=== PATIENT | female | born 1950 | race Caucasian/White ===

== ENCOUNTER 2020-09-03 10:09 | Outpatient (CLI) | payer MEDICARE, OTHER, SELFPAY ==
[2020-09-03 10:24] LABS: Basophils Percent Auto 0.5 % (0.2-1.2); Eosinophils Absolute Auto 0.2 K/mm3 (0-0.3); Eosinophils Percent Auto 3.8 % (0-4.4); Hematocrit 35.5 % (37.0-47.0); Hemoglobin 11.2 g/dL (12.0-15.0); Immature Granulocyte Absolute 0.02 K/mm3 (0.00-0.031); Immature Granulocyte Percent A 0.3 % (0-0.5); Lymphocytes Absolute Auto 1.16 K/mm3 (0.9-3.2); Lymphocytes Percent Auto 18.4 % (18.3-44.2); Mean Corpuscular HGB Conc 31.5 g/dl (32-36); Mean Corpuscular Volume 88.8 fl (80-100); Mean Platelet Volume 9.1 fl (7.4-10.4); Monocytes Absolute Auto 0.6 K/mm3 (0.1-0.6); Monocytes Percent Auto 8.9 % (2.6-8.5); Neutrophils Absolute Auto 4.3 K/mm3 (1.3-6.7); Neutrophils Percent Auto 68.1 % (45.5-73.1); Platelet Count Result 290 k/mm3 (150-375); Red Cell Distribution Width 13.9 % (11.5-14.5); White Blood Count 6.3 K/mm3 (4.5-10.0)
[2020-09-03 12:41] LABS: Vitamin D 25 Hydroxy 51.3 ng/mL
[2020-09-03 13:36] LABS: Alanine Aminotransferase 18 U/L (4-35); Albumin Level 4.5 g/dL (3.5-5.1); Alkaline Phosphatase 60 U/L (38-126); Anion Gap 6 mmol/L (8-16); Aspartate Amino Transferase 28 U/L (14-36); Bilirubin,Total 0.3 mg/dL (0.2-1.3); Blood Urea Nitrogen 22 mg/dL (7-17); Calcium 9.5 mg/dL (8.4-10.2); Carbon Dioxide 28 mmol/L (22-30); Chloride 104 mmol/L (98-107); Cholesterol 203 mg/dL (0-200); Estimated Glomerular Filt Rate > 60; Glucose 87 mg/dL (65-105); HDL Direct 78 mg/dL; Potassium 4.8 mmol/L (3.4-5.0); Sodium 138 mmol/L (137-145); Triglycerides 86 mg/dL (<150)
[2020-09-03 13:46] LABS: LDL Cholesterol Direct 85 mg/dL
== END 2020-09-03 10:10 | disposition home or self-care (01) ==
PROVIDERS: PCP Family Medicine; Visit Provider Family Medicine
DX: E78.2 Mixed hyperlipidemia (principal); K21.9 Gastro-esophageal reflux disease without esophagitis; M81.0 Age-related osteoporosis without current pathological fracture; D63.8 Anemia in other chronic diseases classified elsewhere; Z79.899 Other long term (current) drug therapy
CPT/HCPCS: 36415; 80053; 80061; 82306; 82607; 84443; 85025

== ENCOUNTER 2020-11-02 12:56 | Outpatient (CLI) | payer MEDICARE, OTHER, SELFPAY ==
--- NOTE | ~2020-11-02 | DEXA_ITS ---
Bone Density Report Name: Ngozi Gomez Age: 70 Sex: Female Ethnicity: White Date of : 1950 Indication: osteopenia; monitoring treatment; height loss; postmenopausal Referring Provider: Adria Pastor Study: Bone densitometry was performed. Exam Date: November 02, 2020 Accession number: [id number] Bone Density: Region BMD T-score Z-score Classification AP Spine (L1-L4) 0.907 -1.3 0.8 Osteopenia Femoral Neck (Left) 0.566 -2.6 -0.8 Osteoporosis Total Hip (Left) 0.793 -1.2 0.3 Osteopenia Total Hip Bilateral Avg 0.791 -1.3 0.3 Osteopenia Femoral Neck (Right) 0.657 -1.7 0.1 Osteopenia Total Hip (Right) 0.788 -1.3 0.2 Osteopenia World Health Organization criteria for BMD impression classify patients as: Normal (T-score at or above -1.0), Osteopenia (T-score between -1.0 and -2.5), or Osteoporosis (T-score at or below -2.5). 10-year Fracture Risk: FRAX not reported because: Some T-score for Spine Total or Hip Total or Femoral Neck at or below -2.5 Treated for osteoporosis Previous Exams: Region Exam Age BMD T-score BMD Change BMD Change Date g/cm2 vs Baseline vs Previous AP Spine(L1-L4) 11/02/2020 70 0.907 -1.3 0.064(7.5%)# 0.052(6.1%)* 12/28/2017 67 0.855 -1.7 0.012(1.4%)# 0.053(6.6%)* 11/10/2014 64 0.802 -2.2 -0.041(-4.9%)# -0.013(-1.6%)# 10/13/2011 61 0.815 -2.1 -0.028(-3.3%)# 0.007(0.9%)# 10/01/2009 59 0.808 -2.2 -0.035(-4.1%)* -0.009(-1.1%) 09/21/2007 56 0.817 -2.1 -0.026(-3.1%)* -0.026(-3.1%)* 08/22/2005 54 0.843 -1.9 Total Hip(Left) 11/02/2020 70 0.793 -1.2 0.066(9.1%)# 0.000(-0.1%) 12/28/2017 67 0.794 -1.2 0.067(9.2%)# -0.015(-1.8%) 11/10/2014 64 0.808 -1.1 0.081(11.2%)# 0.036(4.6%)# 10/13/2011 61 0.772 -1.4 0.046(6.3%)# 0.026(3.5%)# 10/01/2009 59 0.746 -1.6 0.019(2.7%) -0.001(-0.2%) 09/21/2007 56 0.748 -1.6 0.021(2.8%) 0.021(2.8%) 08/22/2005 54 0.727 -1.8 Total Hip(Right) 11/02/2020 70 0.788 -1.3 0.028(3.7%)# -0.012(-1.4%) 12/28/2017 67 0.799 -1.2 0.040(5.3%)# 0.003(0.3%) 11/10/2014 64 0.796 -1.2 0.037(4.9%)# 0.021(2.7%)# 10/13/2011 61 0.775 -1.4 0.016(2.1%)# 0.018(2.4%)# 10/01/2009 59 0.757 -1.5 -0.002(-0.3%) 0.022(3.0%) 09/21/2007 56 0.735 -1.7 -0.024(-3.2%) -0.024(-3.2%) 08/22/2005 54 0.759 -1.5 *Denotes significance at 95% confidence level, LSC for AP Spine = 0.022 g/cm2, LSC for Total Hip = 0.027 g/cm2 Clinical Information Provided by Patient:
== END 2020-11-02 12:57 | disposition home or self-care (01) ==
LOC: ANHIMG 12:59
PROVIDERS: PCP Family Medicine; Visit Provider Internal Medicine Hematology & Oncology
DX: M81.0 Age-related osteoporosis without current pathological fracture (principal); M85.89 Other specified disorders of bone density and structure, multiple sites
CPT/HCPCS: 77080

== ENCOUNTER 2021-09-16 10:02 | Outpatient (CLI) | payer MEDICARE, OTHER, SELFPAY ==
[2021-09-16 10:31] LABS: Basophils Percent Auto 0.5 % (0.2-1.2); Eosinophils Absolute Auto 0.1 K/mm3 (0-0.3); Eosinophils Percent Auto 2.3 % (0-4.4); Hematocrit 37.6 % (37.0-47.0); Hemoglobin 11.3 g/dL (12.0-15.0); Immature Granulocyte Absolute 0.03 K/mm3 (0.00-0.031); Immature Granulocyte Percent A 0.5 % (0-0.5); Lymphocytes Absolute Auto 1.05 K/mm3 (0.9-3.2); Lymphocytes Percent Auto 18.4 % (18.3-44.2); Mean Corpuscular HGB Conc 30.1 g/dl (32-36); Mean Corpuscular Hemoglobin 28.3 pg (26-34); Mean Corpuscular Volume 94.2 fl (80-100); Mean Platelet Volume 9.2 fl (7.4-10.4); Monocytes Absolute Auto 0.4 K/mm3 (0.1-0.6); Monocytes Percent Auto 7.2 % (2.6-8.5); Neutrophils Absolute Auto 4.1 K/mm3 (1.3-6.7); Neutrophils Percent Auto 71.1 % (45.5-73.1); Platelet Count Result 287 k/mm3 (150-375); Red Blood Count 3.99 M/mm3 (4.2-5.4); Red Cell Distribution Width 13.7 % (11.5-14.5); White Blood Count 5.7 K/mm3 (4.5-10.0)
[2021-09-16 11:07] LABS: Cholesterol 216 mg/dL (0-200); HDL Direct 70 mg/dL; Iron 67 ug/dL (37-170); Triglycerides 90 mg/dL (<150)
[2021-09-16 11:11] LABS: Alanine Aminotransferase 17 U/L (4-35); Albumin Level 4.6 g/dL (3.5-5.1); Alkaline Phosphatase 68 U/L (38-126); Anion Gap 7 mmol/L (8-16); Aspartate Amino Transferase 32 U/L (14-36); Bilirubin,Total 0.2 mg/dL (0.2-1.3); Blood Urea Nitrogen 23 mg/dL (7-17); Carbon Dioxide 26 mmol/L (22-30); Chloride 105 mmol/L (98-107); Estimated Glomerular Filt Rate > 60; Glucose 96 mg/dL (65-110); Potassium 4.3 mmol/L (3.4-5.0); Sodium 138 mmol/L (137-145)
[2021-09-16 11:17] LABS: Percent Iron Saturation 22 % (20-50)
[2021-09-16 11:19] LABS: LDL Cholesterol Direct 87 mg/dL
[2021-09-16 11:33] LABS: Vitamin D 25 Hydroxy 52.6 ng/mL
== END 2021-09-16 10:03 | disposition home or self-care (01) ==
LOC: ANHLAB 10:05
PROVIDERS: PCP Family Medicine; Visit Provider Internal Medicine Hematology & Oncology
DX: K21.9 Gastro-esophageal reflux disease without esophagitis (principal); D63.8 Anemia in other chronic diseases classified elsewhere; Z79.899 Other long term (current) drug therapy; M81.0 Age-related osteoporosis without current pathological fracture
CPT/HCPCS: 36415; 80053; 80061; 82306; 82607; 82728; 83540; 83550; 85025

== ENCOUNTER 2021-12-16 00:11 | Day surgery (SDC) | payer MEDICARE, OTHER, SELFPAY ==
[2021-11-29 13:36] VITALS: BMI 27.5
--- NOTE | 2021-12-16 09:19 | WPDANESEPPF ---
Anes - Initial Pre Proc Eval Procedure: Operation Date: 12/16/21 11:00 Proposed Procedures p Screening Colonoscopy - Kyle Callahan MD Date/Time: 12/16/21 09:19 Surgeon: Kyle Callahan MD Pre Op Diagnosis: family hx of colon ca Patient Data Age: 71 Gender: F Height: 1.55 m Weight: 66 kg Allergies Allergy/AdvReac Type Severity Reaction Status Date / Time iodine Allergy Unknown Anxiety Verified 12/16/21 09:56 ospemifene [Osphena] Allergy Unknown itching, Verified 12/16/21 09:56 hot flashes shellfish derived Allergy Unknown Anxiety Verified 12/16/21 09:56 Home Medications Medication Instructions Recorded Confirmed Type acetaminophen 650 mg 650 mg PO PRN PRN Pain 03/15/19 11/29/21 History tablet,extended release ascorbic acid (vitamin C) 500 mg 1,000 mg PO DAILY 03/15/19 11/29/21 History tablet calcium carb 300 mg-D3 800 1 tablet PO DAILY 03/15/19 11/29/21 History unit-mag ox 25 mg-marketing copywriter 0.5 mg-ck-Zn tablet cholecalciferol (vitamin D3) 25 1,000 unit PO DAILY 03/15/19 11/29/21 History mcg (1,000 unit) capsule denosumab 60 mg/mL subcutaneous 60 mg subcut [id number] 03/15/19 11/29/21 History syringe fluticasone propionate 50 1 spray intranasal DAILY PRN Nasal 03/15/19 11/29/21 History mcg/actuation nasal Congestion spray,suspension multivitamin 1 tablet PO DAILY 03/15/19 11/29/21 History tretinoin 0.05 % topical gel 1 applic topical HS #45 grams 01/20/20 11/29/21 Rx atorvastatin 10 mg tablet 10 mg PO DAILY #90 tabs 02/04/21 11/29/21 Rx omeprazole 20 mg capsule,delayed 20 mg PO DAILY #30 caps 02/15/21 11/29/21 Rx release meloxicam 15 mg tablet See Rx Instructions .Route 09/06/21 11/29/21 Rx .COMPLEX #90 tabs Patient hx anesthesia problems: none Family hx anesthesia problems: none Results Review: All pre-operative results and documents have been reviewed as part of the pre-operative evaluation. [facility] Past Medical History Medical History (Updated 12/16/21 @ 09:20 by Huber Acosta MD) Age-related osteoporosis without current pathological fracture Basal cell carcinoma upper back Gastro-esophageal reflux disease without esophagitis Mixed hyperlipidemia Overweight Sciatica Surgical History Surgical History (Updated 02/15/21 @ 11:32 by Dina Augustin [facility]) H/O shoulder replacement (~2020) H/O total hysterectomy Family History Family History Sibling Hypertension Father Family history of pancreatic cancer, Onset Age: 49 Mother Family history of malignant neoplasm of uterus, Onset Age: 49 Grandparent Family history of malignant neoplasm of breast Other Diabetes mellitus Family history of allergic disorder Family history of cardiovascular disease Social History Social History (Reviewed 02/15/21 @ 10:55 by Dina Augustin [facility]) Smoking status: Never smoker Smoking end date: 05/25/77 Alcohol intake: never Substance use type: does not use Living arrangements: with family Spiritual care concerns: No Anes - Eval Final PreProcedure Day of Procedure 12/16/21 09:19 Patient weight: overweight Heart: regular rate and rhythm Lungs: clear to auscultation and normal air movement Airway: Mallampati scale class II Neurological: alert and oriented Last oral intake: >/= 8 hours ASA classification: II Emergent: no Anesthetic plan: proceed Anesthesia type and monitoring: general GIVS Results Review: All pre-operative results and documents have been reviewed as part of the pre-operative evaluation. Informed Consent: The patient's anesthetic plan and its attendant risks and benefits were discussed with the patient/family/POA. Questions were solicited and answers provided to the satisfaction of the patient/family/POA.
[2021-12-16 09:57] VITALS: BP 131/71; PULSE 69; RESP 22; TEMP 36.1; O2SAT 99
[2021-12-16] MEDS: LACTATED RINGERS 1,000 ML 150 ML IV CONT (10:15)
--- NOTE | 2021-12-16 10:27 | PM.IMHP ---
H&P: HPI History of Present Illness Date/Time: 12/16/21 10:27 Chief Complaint: History of colon polyp. Narrative: This is a 71-year-old white female patient presents for screening colonoscopy. She has a distant history of hyperplastic colon polyp. Patient reports her current weight appetite bowel movements are normal. She denies abdominal pain. She has had no bleeding. Family history is significant that her sister had throat cancer. There is no reported history of colon cancer within the. Patient presents today for neoplasia screening endoscopy. Review of Systems Review of Systems: Review of systems noncontributory. [facility] Past Medical History Medical History (Updated 12/16/21 @ 10:28 by Kyle Callahan MD) Age-related osteoporosis without current pathological fracture Basal cell carcinoma upper back Gastro-esophageal reflux disease without esophagitis Mixed hyperlipidemia Overweight Sciatica Surgical History Surgical History (Updated 02/15/21 @ 11:32 by Dina Augustin C[facility]) H/O shoulder replacement (~2020) H/O total hysterectomy Family History Family History Sibling Hypertension Father Family history of pancreatic cancer, Onset Age: 49 Mother Family history of malignant neoplasm of uterus, Onset Age: 49 Grandparent Family history of malignant neoplasm of breast Other Diabetes mellitus Family history of allergic disorder Family history of cardiovascular disease Social History Social History Smoking status: Never smoker Smoking end date: 05/25/77 Alcohol intake: never Substance use type: does not use Living arrangements: with family Spiritual care concerns: No Meds Home Medications and Allergies Home Medications Medication Instructions Recorded Confirmed Type acetaminophen 650 mg 650 mg PO PRN PRN Pain 03/15/19 11/29/21 History tablet,extended release ascorbic acid (vitamin C) 500 mg 1,000 mg PO DAILY 03/15/19 11/29/21 History tablet calcium carb 300 mg-D3 800 1 tablet PO DAILY 03/15/19 11/29/21 History unit-mag ox 25 mg-copy editor 0.5 mg-ck-Zn tablet cholecalciferol (vitamin D3) 25 1,000 unit PO DAILY 03/15/19 11/29/21 History mcg (1,000 unit) capsule denosumab 60 mg/mL subcutaneous 60 mg subcut [id number] 03/15/19 11/29/21 History syringe fluticasone propionate 50 1 spray intranasal DAILY PRN Nasal 03/15/19 11/29/21 History mcg/actuation nasal Congestion spray,suspension multivitamin 1 tablet PO DAILY 03/15/19 11/29/21 History tretinoin 0.05 % topical gel 1 applic topical HS #45 grams 01/20/20 11/29/21 Rx atorvastatin 10 mg tablet 10 mg PO DAILY #90 tabs 02/04/21 11/29/21 Rx omeprazole 20 mg capsule,delayed 20 mg PO DAILY #30 caps 02/15/21 11/29/21 Rx release meloxicam 15 mg tablet See Rx Instructions .Route 09/06/21 11/29/21 Rx .COMPLEX #90 tabs Allergies Allergy/AdvReac Type Severity Reaction Status Date / Time iodine Allergy Unknown Anxiety Verified 12/16/21 09:56 ospemifene [Osphena] Allergy Unknown itching, Verified 12/16/21 09:56 hot flashes shellfish derived Allergy Unknown Anxiety Verified 12/16/21 09:56 Vital Signs Vital Signs - 24 hr 12/16/21 09:57 Temperature 97.0 F L Pulse Rate 69 Respiratory Rate 22 H Blood Pressure 131/71 Pulse Oximetry 99 Oxygen Delivery Room Air Exam Narrative: Physical exam reveals patient to be alert. Vital signs stable. HEENT exam is unremarkable. Patient is anicteric. Lungs are clear to auscultation and percussion. Heart is without murmur or extra sounds. Abdominal exam bowel sounds present soft nontender with no organomegaly. Digital external rectal exam is normal. Assessment and Plan Assessment and plan (1) Encounter for screening colonoscopy: Code(s): Z12.11 - Encounter for screening for malignant neoplasm of colon
[2021-12-16 11:01] VITALS: BP 96/51; PULSE 83; RESP 22; O2SAT 100
[2021-12-16 11:11] VITALS: BP 102/55; PULSE 84; RESP 26; O2SAT 100
[2021-12-16 11:21] VITALS: BP 125/69; PULSE 74; RESP 21; O2SAT 100
== END 2021-12-16 11:39 | disposition home or self-care (01) ==
PROVIDERS: PCP Family Medicine; Visit Provider Internal Medicine Gastroenterology
PROC: 0DJD8ZZ Inspection of Lower Intestinal Tract, Via Natural or Artificial Opening Endoscopic (ICD-10-PCS; CPT 45378; principal; 2021-12-16 11:00)
DX: Z12.11 Encounter for screening for malignant neoplasm of colon (principal); Z80.0 Family history of malignant neoplasm of digestive organs; K64.8 Other hemorrhoids; K57.30 Diverticulosis of large intestine without perforation or abscess without bleeding; M54.30 Sciatica, unspecified side; K21.9 Gastro-esophageal reflux disease without esophagitis; E78.2 Mixed hyperlipidemia; Z85.828 Personal history of other malignant neoplasm of skin
CPT/HCPCS: G0105; J2704; J7120

== ENCOUNTER 2022-11-03 11:51 | Outpatient (CLI) | payer MEDICARE, OTHER, SELFPAY ==
[2022-11-03 16:43] LABS: Cholesterol 226 mg/dL (0-200); HDL Direct 79 mg/dL; Triglycerides 100 mg/dL (<150)
[2022-11-03 16:54] LABS: LDL Cholesterol Direct 103 mg/dL
[2022-11-03 17:00] LABS: Vitamin D 25 Hydroxy 39.9 ng/mL
== END 2022-11-03 11:52 | disposition home or self-care (01) ==
LOC: ANHLAB 11:55
PROVIDERS: PCP Family Medicine; Visit Provider Internal Medicine Hematology & Oncology
DX: E78.2 Mixed hyperlipidemia (principal); Z79.899 Other long term (current) drug therapy; D64.9 Anemia, unspecified; M81.0 Age-related osteoporosis without current pathological fracture
CPT/HCPCS: 36415; 80061; 82306; 82607

== ENCOUNTER 2022-12-10 13:02 | Outpatient (CLI) | payer MEDICARE, OTHER, SELFPAY | END 2022-12-10 13:03 | disposition home or self-care (01) | LOC: ANHAUDASC 13:05 | PROVIDERS: PCP Family Medicine; Visit Provider Otolaryngology | DX: H91.90 Unspecified hearing loss, unspecified ear (principal) | CPT/HCPCS: 92557; 92567 ==

== ENCOUNTER 2023-05-05 10:30 | Outpatient (CLI) | payer MEDICARE, OTHER, SELFPAY ==
[2023-05-05 10:47] LABS: Basophils Percent Auto 0.5 % (0.2-1.2); Eosinophils Absolute Auto 0.1 K/mm3 (0-0.3); Hematocrit 37.6 % (37.0-47.0); Hemoglobin 12.1 g/dL (12.0-15.0); Immature Granulocyte Absolute 0.02 K/mm3 (0.00-0.031); Immature Granulocyte Percent A 0.3 % (0-0.5); Lymphocytes Absolute Auto 0.98 K/mm3 (0.9-3.2); Lymphocytes Percent Auto 16.1 % (18.3-44.2); Mean Corpuscular HGB Conc 32.2 g/dl (32-36); Mean Corpuscular Hemoglobin 27.9 pg (26-34); Mean Corpuscular Volume 86.6 fl (80-100); Mean Platelet Volume 8.6 fl (7.4-10.4); Monocytes Absolute Auto 0.5 K/mm3 (0.1-0.6); Monocytes Percent Auto 8.4 % (2.6-8.5); Neutrophils Absolute Auto 4.4 K/mm3 (1.3-6.7); Neutrophils Percent Auto 72.7 % (45.5-73.1); Platelet Count Result 301 k/mm3 (150-375); Red Blood Count 4.34 M/mm3 (4.2-5.4); Red Cell Distribution Width 14.5 % (11.5-14.5); White Blood Count 6.1 K/mm3 (4.5-10.0)
[2023-05-05 12:02] LABS: Alanine Aminotransferase 19 U/L (6-35); Albumin Level 4.4 g/dL (3.5-5.1); Alkaline Phosphatase 76 U/L (38-126); Anion Gap 6 mmol/L (8-16); Aspartate Amino Transferase 26 U/L (14-36); Bilirubin,Total 0.4 mg/dL (0.2-1.3); Blood Urea Nitrogen 10 mg/dL (7-17); Carbon Dioxide 29 mmol/L (22-30); Chloride 101 mmol/L (98-107); Estimated Glomerular Filt Rate > 60; Glucose 96 mg/dL (65-110); Potassium 4.4 mmol/L (3.4-5.0); Sodium 136 mmol/L (137-145)
== END 2023-05-05 10:31 | disposition home or self-care (01) ==
LOC: ANHLAB 10:33
PROVIDERS: PCP Family Medicine; Visit Provider Internal Medicine Hematology & Oncology
DX: D64.9 Anemia, unspecified (principal); M81.0 Age-related osteoporosis without current pathological fracture; Z79.899 Other long term (current) drug therapy
CPT/HCPCS: 36415; 80053; 82728; 85025

== ENCOUNTER → 2023-05-11 09:09 | Outpatient (CLI) | payer MEDICARE, OTHER, SELFPAY ==
--- NOTE | ~2023-05-11 | CT_ITS ---
EXAMINATION: CT sinus wo con DATE: 05/11/2023 09:26 INDICATION: Chronic sinusitis TECHNIQUE: Computed tomography (CT) of the paranasal sinuses was performed without intravenous contra st. The dose-length product (DLP) was 397.93 mGy-cm. Iterative reconstruction was used. COMPARISON: 09/01/2012 FINDINGS: There is normal development and pneumatization of the paranasal sinuses. There is minimal o pacification of the right frontal sinus. Mild mucosal thickening is noted in the left sphenoid sinus. There appear to be surgical changes of the right maxillary sinus. A small area of focal thickening i s noted superomedially in the right maxillary sinus. The bilateral ostiomeatal complexes are patent. Visualized soft tissues are unremarkable. There are small fluid levels in the maxillary sinuses. IMPRESSION: 1. Mild sinus disease as detailed above. Reviewed, dictated and finalized at location B. [employer]
== END ==
PROVIDERS: PCP Family Medicine; Visit Provider Otolaryngology
DX: B49 Unspecified mycosis (principal)
CPT/HCPCS: 70486

== ENCOUNTER 2023-09-24 10:26 | Outpatient (CLI) | payer MEDICARE, OTHER, SELFPAY ==
[2023-09-24 19:05] LABS: Basophils Percent Auto 0.1 % (0.2-1.2); Eosinophils Percent Auto 0.3 % (0-4.4); Hematocrit 37.8 % (37.0-47.0); Hemoglobin 11.8 g/dL (12.0-15.0); Immature Granulocyte Absolute 0.12 K/mm3 (0.00-0.031); Immature Granulocyte Percent A 1.3 % (0-0.5); Lymphocytes Absolute Auto 1.59 K/mm3 (0.9-3.2); Lymphocytes Percent Auto 16.6 % (18.3-44.2); Mean Corpuscular HGB Conc 31.2 g/dl (32-36); Mean Corpuscular Volume 89.8 fl (80-100); Mean Platelet Volume 9.9 fl (7.4-10.4); Neutrophils Absolute Auto 6.9 K/mm3 (1.3-6.7); Neutrophils Percent Auto 71.7 % (45.5-73.1); Platelet Count Result 315 k/mm3 (150-375); Red Blood Count 4.21 M/mm3 (4.2-5.4); Red Cell Distribution Width 14.1 % (11.5-14.5); White Blood Count 9.6 K/mm3 (4.5-10.0)
[2023-09-24 19:13] LABS: Alanine Aminotransferase 20 U/L (6-35); Albumin Level 4.4 g/dL (3.5-5.1); Alkaline Phosphatase 75 U/L (38-126); Anion Gap 5 mmol/L (4-12); Aspartate Amino Transferase 29 U/L (14-36); Bilirubin,Total 0.5 mg/dL (0.2-1.3); Blood Urea Nitrogen 16 mg/dL (7-17); Calcium 9.5 mg/dL (8.4-10.2); Carbon Dioxide 30 mmol/L (22-30); Chloride 103 mmol/L (98-107); Cholesterol 212 mg/dL (0-200); Estimated Glomerular Filt Rate > 60; Glucose 81 mg/dL (65-110); HDL Direct 81 mg/dL; Potassium 3.7 mmol/L (3.4-5.0); Sodium 138 mmol/L (137-145); Triglycerides 82 mg/dL (<150)
[2023-09-24 19:24] LABS: LDL Cholesterol Direct 103 mg/dL
== END 2023-09-24 10:27 | disposition home or self-care (01) ==
PROVIDERS: PCP Family Medicine; Visit Provider Family Medicine
DX: E78.2 Mixed hyperlipidemia (principal); D64.9 Anemia, unspecified; Z79.899 Other long term (current) drug therapy
CPT/HCPCS: 36415; 80053; 80061; 85025

== ENCOUNTER 2023-11-05 10:39 | Outpatient (CLI) | payer MEDICARE, OTHER, SELFPAY ==
[2023-11-05 10:53] LABS: Basophils Percent Auto 0.4 % (0.2-1.2); Eosinophils Absolute Auto 0.1 K/mm3 (0-0.3); Eosinophils Percent Auto 1.8 % (0-4.4); Hematocrit 38.7 % (37.0-47.0); Hemoglobin 12.3 g/dL (12.0-15.0); Immature Granulocyte Absolute 0.03 K/mm3 (0.00-0.031); Immature Granulocyte Percent A 0.5 % (0-0.5); Lymphocytes Absolute Auto 1.19 K/mm3 (0.9-3.2); Lymphocytes Percent Auto 20.9 % (18.3-44.2); Mean Corpuscular HGB Conc 31.8 g/dl (32-36); Mean Corpuscular Hemoglobin 28.2 pg (26-34); Mean Corpuscular Volume 88.8 fl (80-100); Mean Platelet Volume 8.8 fl (7.4-10.4); Monocytes Absolute Auto 0.5 K/mm3 (0.1-0.6); Monocytes Percent Auto 9.5 % (2.6-8.5); Neutrophils Absolute Auto 3.8 K/mm3 (1.3-6.7); Neutrophils Percent Auto 66.9 % (45.5-73.1); Platelet Count Result 279 k/mm3 (150-375); Red Blood Count 4.36 M/mm3 (4.2-5.4); Red Cell Distribution Width 13.9 % (11.5-14.5); White Blood Count 5.7 K/mm3 (4.5-10.0)
[2023-11-05 12:21] LABS: Iron 82 ug/dL (37-170)
[2023-11-05 12:24] LABS: Anion Gap 8 mmol/L (4-12); Blood Urea Nitrogen 19 mg/dL (7-17); Calcium 9.5 mg/dL (8.4-10.2); Carbon Dioxide 27 mmol/L (22-30); Chloride 103 mmol/L (98-107); Cholesterol 216 mg/dL (0-200); Estimated Glomerular Filt Rate > 60; Glucose 93 mg/dL (65-110); Potassium 4.5 mmol/L (3.4-5.0); Sodium 138 mmol/L (137-145)
[2023-11-05 12:35] LABS: Percent Iron Saturation 29 % (20-50)
[2023-11-05 13:32] LABS: Folic Acid > 20.0 ng/mL (2.76->20)
== END 2023-11-05 10:40 | disposition home or self-care (01) ==
LOC: ANHLAB 10:41
PROVIDERS: Nurse Practitioner Family; PCP Family Medicine; Visit Provider Internal Medicine Hematology & Oncology
DX: E78.5 Hyperlipidemia, unspecified (principal); D64.9 Anemia, unspecified
CPT/HCPCS: 36415; 80048; 82465; 82607; 82728; 82746; 83540; 83550; 85025

== ENCOUNTER 2024-01-01 18:17 | Emergency (ER) | payer MEDICARE, OTHER, SELFPAY ==
[2024-01-01 18:25] VITALS: BP 152/79; PULSE 93; RESP 20; TEMP 36.9; O2SAT 100
--- NOTE | 2024-01-01 18:47 | ED.URI ---
HPI - URI/Sore Throat General Chief Complaint: Upper Respiratory Infection Stated Complaint: HEADACHE/BURNING SINUS PAIN/EAR FEELS FULL/DRAINAG Time Seen by Provider: 01/01/24 18:35 Source: patient, RN notes reviewed and old records reviewed Mode of arrival: ambulatory Limitations: no limitations History of Present Illness HPI Narrative: Patient presents today complaining of a 2 week history of nasal congestion, sinus pressure, postnasal drip. States she is also having some right ear pain and pressure, which seems to be chronic in nature. Patient has been followed by Dr. Riggins in the past and diagnosed with chronic sinusitis an tinnitus. She is currently taking Mucinex D, Flonase, Tylenol, and meloxicam. She has a follow-up appointment with [facility] in January for a full workup related to her sinuses and tinnitus. Related Data Home Medications Medication Instructions Recorded Confirmed acetaminophen 650 mg 650 mg PO PRN PRN Pain 03/15/19 01/01/24 tablet,extended release ascorbic acid (vitamin C) 500 mg 1,000 mg PO DAILY 03/15/19 01/01/24 tablet calcium carb 300 mg-D3 20 mcg-mag 1 tablet PO DAILY 03/15/19 01/01/24 ox 25 mg-manager copy 0.5 [id number] tablet cholecalciferol (vitamin D3) 25 1,000 unit PO DAILY 03/15/19 01/01/24 mcg (1,000 unit) capsule multivitamin 1 tablet PO DAILY 03/15/19 01/01/24 mecobalamin (vitamin B12) 500 mcg 500 mcg PO DAILY 11/18/22 01/01/24 chewable tablet ferrous sulfate 137 mg (45 mg 45 mg PO DAILY 07/15/23 01/01/24 iron) tablet,extended release Allergies Allergy/AdvReac Type Severity Reaction Status Date / Time mold Allergy Intermediate Difficulty Verified 09/22/23 10:34 Breathing iodine Allergy Unknown Anxiety Verified 09/22/23 10:34 ospemifene [Osphena] Allergy Unknown itching, Verified 09/22/23 10:34 hot flashes shellfish derived Allergy Unknown Anxiety Verified 09/22/23 10:34 venlafaxine [From Effexor] Allergy Unknown Verified 01/01/24 18:37 Review of Systems Review of Systems: CONSTITUTIONAL: Denies body aches, fever, chills, or sweats. EYES: Denies visual changes, redness, or discharge. ENT: Denies rhinorrhea. + congestion, sinus pressure, right ear pain and pressure, postnasal drip CARDIOVASCULAR: Denies chest pain, palpitations, or edema. RESPIRATORY: Denies cough or dyspnea. GASTROINTESTINAL: Denies abdominal pain, nausea, vomiting, or diarrhea. GENITOURINARY: Denies dysuria or hematuria. SKIN: Denies rash, itching, or wounds. MUSCULOSKELETAL: Denies back pain, joint pain, or myalgia. NEUROLOGIC: Denies headache, numbness, tingling, or weakness. PSYCH: Denies depression or anxiety. [facility] Past Medical History Medical History Age-related osteoporosis without current pathological fracture dexa: Femoral Neck (Left) -2.1 Osteopenia Basal cell carcinoma upper back Gastro-esophageal reflux disease without esophagitis Hearing loss Mixed hyperlipidemia Overweight Sciatica Surgical History Surgical History H/O shoulder replacement (~2020) Family History Family History Sibling Hypertension Father Family history of pancreatic cancer, Onset Age: 49 Mother Family history of malignant neoplasm of uterus, Onset Age: 49 Grandparent Family history of malignant neoplasm of breast Other Diabetes mellitus Family history of allergic disorder Family history of cardiovascular disease Social History Social History Social History: Caffeine-decaf tea Smoking status: Never smoker Smoking end date: 05/25/77 Alcohol intake: current Alcohol use details: wine rarely Substance use: never Substance use type: does not use Lack of Transportation: YES Lack of Food: Never Tr
== END 2024-01-01 18:50 | disposition home or self-care (01) ==
PROVIDERS: Emergency Provider Nurse Practitioner; PCP Family Medicine
DX: J32.9 Chronic sinusitis, unspecified (principal); M81.0 Age-related osteoporosis without current pathological fracture; K21.9 Gastro-esophageal reflux disease without esophagitis; E78.2 Mixed hyperlipidemia; Z85.828 Personal history of other malignant neoplasm of skin
CPT/HCPCS: 99213; G0463

== ENCOUNTER 2024-05-20 10:39 | Outpatient (CLI) | payer MEDICARE, OTHER, SELFPAY ==
--- NOTE | ~2024-05-20 | MR_ITS ---
EXAMINATION: MR shoulder RT wo con DATE: 05/20/2024 11:44 INDICATION: Right shoulder pain TECHNIQUE: Magnetic resonance imaging (MRI) of the right shoulder was performed without intravenous c ontrast. Sequences included axial PD-weighted FSE, axial T1-weighted FSE, axial fluid sensitive FSE S TIR, coronal oblique PD-weighted FSE, coronal oblique T2-weighted FSE, coronal oblique fluid sensitiv e FSE STIR, sagittal T2-weighted FSE, sagittal T1-weighted, sagittal fluid sensitive FSE STIR. COMPARISON: None. FINDINGS: Bones/other: Interval placement of a right total shoulder arthroplasty with associated metallic magnetic field art ifact which obscures the immediately adjacent bone and soft tissues including the distal supraspinatu s and infraspinatus tendons and to lesser degree the distal subscapularis tendon. There is curvilinea r low signal intensity likely arthroplasty component which projects more caudally than expected at th e axillary recess suggesting possible mechanical failure of the glenoid component. Assessment is griffith margarita limited on MRI and would recommend correlation with either plain radiographs or CT. There is hete rogeneous signal intensity likely synovitis at the axillary recess. Coracoacromial arch: The acromion undersurface is flat in morphology (type I). The coracoacromial ligament is normal. Mild acromioclavicular osteoarthritis. Rotator cuff and long head biceps tendon: There is tendinopathy of the visualized distal insertion of the supraspinatus and infraspinatus tendo ns. No tear at the visualized portions of the tendon supraspinatus and infraspinatus muscle bellies a re normal. Teres minor tendon is normal. There is epimysial edema surrounding the teres minor muscle belly suggesting low-grade strain. Moderate subscapularis tendinopathy without discrete tear. Likely bicipital tenodesis anchored at the cephalad aspect of the intertubercular groove. No asymmetric fatt y atrophy of the rotator cuff or shoulder girdle. IMPRESSION: 1. Postoperative change of interval right total shoulder arthroplasty and bicipital tenodesis. There is suggestion of possible mechanical failure of the glenoid component of the arthroplasty however shawna luation is limited on MRI. Recommend correlation with plain radiographs, CT or CT arthrography. 2. Moderate tendinopathy of the nonobscured portions of the rotator cuff without discrete tear. 3. Epimysial edema surrounding the teres minor muscle belly consistent with low-grade strain. Reviewed, dictated and finalized at location A. [employer] IMPRESSION: 1. Postoperative change of interval right total shoulder arthroplasty and bicip ital tenodesis. There is suggestion of possible mechanical failure of the gleno id component of the arthroplasty however evaluation is limited on MRI. Recommen d correlation with plain radiographs, CT or CT arthrography. 2. Moderate tendinopathy of the nonobscured portions of the rotator cuff withou t discrete tear. 3. Epimysial edema surrounding the teres minor muscle belly consistent with low -grade strain.
== END 2024-05-20 10:40 | disposition home or self-care (01) ==
LOC: GOSHIMG 10:40
PROVIDERS: PCP Family Medicine; Visit Provider Orthopaedic Surgery
DX: S43.421A Sprain of right rotator cuff capsule, initial encounter (principal); X58.XXXA Exposure to other specified factors, initial encounter; Z96.611 Presence of right artificial shoulder joint; M77.8 Other enthesopathies, not elsewhere classified; M25.411 Effusion, right shoulder; Z98.890 Other specified postprocedural states
CPT/HCPCS: 73221

== ENCOUNTER 2024-11-10 11:00 | Outpatient (CLI) | payer MEDICARE, OTHER, SELFPAY ==
[2024-11-10 11:33] LABS: Basophils Percent Auto 0.7 % (0.2-1.2); Eosinophils Absolute Auto 0.2 K/mm3 (0-0.3); Eosinophils Percent Auto 2.8 % (0-4.4); Hematocrit 36.8 % (37.0-47.0); Hemoglobin 11.8 g/dL (12.0-15.0); Immature Granulocyte Absolute 0.03 K/mm3 (0.00-0.031); Immature Granulocyte Percent A 0.5 % (0-0.5); Lymphocytes Absolute Auto 0.94 K/mm3 (0.9-3.2); Lymphocytes Percent Auto 15.5 % (18.3-44.2); Mean Corpuscular HGB Conc 32.1 g/dl (32-36); Mean Corpuscular Hemoglobin 28.6 pg (26-34); Mean Corpuscular Volume 89.1 fl (80-100); Mean Platelet Volume 8.9 fl (7.4-10.4); Monocytes Absolute Auto 0.6 K/mm3 (0.1-0.6); Monocytes Percent Auto 9.9 % (2.6-8.5); Neutrophils Absolute Auto 4.3 K/mm3 (1.3-6.7); Neutrophils Percent Auto 70.6 % (45.5-73.1); Platelet Count Result 332 k/mm3 (150-375); Red Blood Count 4.13 M/mm3 (4.2-5.4); Red Cell Distribution Width 13.7 % (11.5-14.5); White Blood Count 6.1 K/mm3 (4.5-10.0)
--- OUTSIDE RECORDS SUMMARY | 2024-11-10 11:51 | XMS_ITS | Clinical Summary ---
Author Organization [facility] Address [address] [place] [address] Care Team Providers Care Moisture Conditioner Operator Name Role Phone Annette Herrera MD Primary Care Provider Allergies Active Allergy Reactions Criticality Noted Date Comments Mold Other (See Comments) 09/18/2021 Shellfish Containing Products Other (See Comments) Low 06/23/2016 Dizzy, felt like she was going to pass out Dizzy, felt like she was going to pass out Medications atorvastatin (LIPITOR) 10 mg tablet Take 10 mg by mouth late in the day. Active fluticasone (FLONASE) 50 mcg/spray [place], Suspension Administer 2 Sprays in each nostril daily. Active cholecalciferol , vitamin D3, 1,000 unit Take 1,000 Units by mouth daily. Active ascorbic acid, vitamin C, (VITAMIN C) 1,000 mg Tablet Take 1,000 mg by mouth daily. Active acetaminophen (TYLENOL ARTHRITIS) 650 mg Extended Release tablet Take 650 mg by mouth every 6 hours as needed for Pain. Active multivitamin (DAILY-ANGELITO) tablet Take 1 Tablet by mouth daily. Active denosumab (PROLIA) 60 mg/mL Syringe Inject 60 mg by subcutaneous injection Every twentysix weeks. Active meloxicam (MOBIC) 15 mg tablet Take 15 mg by mouth daily. Active omeprazole (PriLOSEC) 20 mg Capsule, Delayed Release(E.C.) omeprazole 20 mg capsule,delayed release TAKE 1 CAPSULE BY MOUTH DAILY Active calcium carbonate-vitam in D3 (Caltrate with Vitamin D3) 600 mg-20 mcg (800 unit) Tablet Caltrate 800 mg Active CYANOCOBALAMIN, VITAMIN B-12, ORAL Take by mouth. Activ e Active Problems Problem Noted Date Diagnosed Date Arthritis 03/24/2016 Pure hypercholesterolemia 03/24/2016 Seasonal allergic rhinitis 03/24/2016 Normocytic anemia 03/24/2016 Encounters Date Type Department Care Team Description 11/08/2024 External Device Data [facility] ABSTRACTION Provider, Abstract 10/13/2024 External Device Data [facility] ABSTRACTION Provider, Abstract 10/12/2024 External Device Data [facility] ABSTRACTION Provider, Abstract 10/11/2024 External Device Data [facility] ABSTRACTION Provider, Abstract 08/10/2024 External Device Data [facility] ABSTRACTION Provider, Abstract from Last 3 Months Family History Medical History Relation Name Comments Cancer Father Cancer Mother Relation Name Status Comments Brother 1 Alive Brother 2 Alive Father Mother Sister 1 Alive Sister 2 Alive Social History Tobacco Use Types Packs/Day Years Used Date Smoking Tobacco: Never Smokeless Tobacco: Never Tobacco Cessation:Counseling Given: Not Answered Alcohol Use Standard Drinks/Week Comments Yes 0 (1 standard drink = 0.6 oz pur e alcohol) Comments No Sex and Gender Information Value Date Recorded Sex Assigned at Not on file Legal Sex Female 12:33 PM CDT Gender Identity Not on file Sexual Orientation Not on file Last Filed Vital Signs Vital Sign Reading Time Taken Comments Blood Pressure 161/97 11/12/2023 10:11 AM CDT Pulse 95 11/12/2023 10:11 AM CDT Temperature 36.8 C (98.2 F) 11/12/2023 10:09 AM CDT Respiratory Rate 18 11/12/2023 10:09 AM CDT Oxygen Saturation 94% 11/12/2023 10:09 AM CDT Inhaled Oxygen Concentration - - Weight 67.1 kg (148 lb) 11/12/2023 10:09 AM CDT Height 157.5 cm (5' 2) 09/18/2021 9:05 AM CDT Body Mass Index 27.07 09/18/2021 9:05 AM CDT Plan of Treatment Upcoming Encounters Date Type Department Care Team (Late st Contact Info) Description 11/14/2024 10:00 AM CDT Office Visit [facility] Oncology and Hematology - [place] [address] [place] [address] [facility] [address] [place] [address] Health Maintenance Due Date Last Done Comments DTAP/TDAP/TD VACCINES (1 - Tdap) 1969 Traditional Medicare (ACO) A nnual Wellness Visit 1969 FIT-DNA Q 3 years 10/03/1995 FIT/FOBT Q 1 year 10/03/1995 Flex Sig/CT Colonography Q 5 years 10/03/1995 PNEUMOCOCCAL VACCINE 50+ YEA RS (1 of 1 - PCV) 2000 ZOSTER VACCINE (1 of 2) 2000 INFLUENZA VACCINE (#1) 2023 02/25/2022, 2020 BREAST CANCER SCREENING 01/17/2025 01/18/20 24, 01/18/2024, 01/15/2023, Additional history exists RSV VACCINE (60+ or ) (1 - 1-dose 75+ series) 2025 OSTEOPOROSIS SCREENING 10/29/2027 , 10/28/2022, 11/02/2020, Additional history exists COLORECTAL SCREENING 12/17/2031 12/16/2021 Colorectal Cancer Screening 12/17/2031 Procedures Procedure Name Priority Date/Time Associated Diagnosis Comments HM DEXA SCAN Routine 10/28/2022 3:23 PM CDT MAMMO SCREENING BILAT Routine 11/22/2020 from Last 3 Months or Most Recently Relevant to Health Maintenance Results * HM DEXA SCAN (10/28/2022 3:23 PM CDT) Adria Pastor MD HEALTH MAINTENANCE Final Result * MAMMO SCREENING BILAT (11/22/2020) Anatomical Region Laterality Modality Breast Bilateral Mammography us Abstract Provider MAMMO ORDERABLES Edited Result - Final from Last 3 Months or Most Recently Relevant to Health Maintenance Insurance MEDICARE PART A AND B [facility] MEDICARE PART A AND B Care Teams Moisture Conditioner Operator Relationship Specialty Start Date End Date Annette Herrera MD PCP - General Family Practice 03/24/16
--- OUTSIDE RECORDS SUMMARY | 2024-11-10 11:51 | XMS_ITS | Clinical Summary ---
Author Organization [facility] Address [address] [place] [address] Care Team Providers Care Steel Rigger Name Role Phone Annette Herrera MD Primary Care Provider + Allergies Active Allergy Reactions Criticality Noted Date Comments Mold Unknown,Other (See comments) Low 09/18/2021 Shellfish Containing Products Other (See comments) Low 06/23/2016 Dizzy, felt like she was going to pass out Medications atorvastatin (LIPITOR) 10 mg tablet Take 10 mg by mouth Active fluticasone propionate (FLONASE) 50 mcg/actuation nasal spray Administer 2 sprays into affected nostril(s) daily Active cholecalciferol (VITAMIN D-3) 1,000 unit (25 mcg) tablet Take 1,000 Units by mouth daily Active calcium carbonate-vitam in D3 (CALTRATE 600 + D) 1500 mg (600 mg elemental) -400 units per tablet Take 1 tablet by mouth Active acetaminophen ER (TYLENOL) 650 mg 8 hr tablet Take 650 mg by mouth every 6 hours as needed Active multivitamin tablet Take 1 tablet by mouth daily Active HYDROcodone-marielena taminophen (NORCO) 5-325 mg per tablet Take 1-2 tablets by mouth every 6 (six) hours as needed Active meclizine (ANTIVERT) 25 mg tablet TAKE 1 TABLET BY MOUTH THREE TIMES DAILY FOR DIZZINESS Active meloxicam (MOBIC) 15 mg tablet Take 1 tablet (15 mg total) by mouth daily Active neomycin-polymy ever-dexAMETHaso ne (MAXITROL) 3.5mg/mL-10,000 unit/mL-0.1 % ophthalmic suspension INSTILL 1 DROP INTO EACH EYE FOUR TIMES DAILY FOR 7 DAYS Active omeprazole (PriLOSEC) 20 mg capsule Take 1 capsule (20 mg total) by mouth daily Active triamcinolone (KENALOG) 0.1 % cream APPLY TOPICALLY THREE TIMES DAILY Active venlafaxine XR (EFFEXOR-XR) 37.5 mg 24 hr capsule TAKE 1 CAPSULE(37.5 MG) BY MOUTH DAILY. MAY INCREASE DOSE TO 75 MG AFTER 2 WEEKS WITH NO IMPROVEMENT 30 capsule 2 5 Active Active Problems Problem Noted Date Diagnosed Date Tendinitis of right rotator cuff 12/23/2023 Pain in joint of right shoulder 01/21/2023 Osteoarthritis 09/10/2021 Abnormal mammogram 02/04/2019 Arthritis 03/24/2016 Normocytic anemia 03/24/2016 Pure hypercholesterolemia 03/24/2016 Seasonal allergic rhinitis 03/24/2016 Immunizations Immunization Administration Dates Next Due Influenza, Quadrivalent, Rec ombinant, Egg Free, Preservative Free, Intramuscular 01/18/2019 Influenza, Quadrivalent, Spl it, Preservative Free, Intramuscular 02/03/2018 Influenza, Unspecified 02/17/2024 ZOSTER LIVE 01/28/2018 ZOSTER Recombinant 10/19/2018,01/28/2018 Surgical History Surgery Date Site/Laterality Comments SINUS SURGERY Medical History Medical History Date Comments Headache Osteoporosis Arthritis Family History Medical History Relation Name Comments Pancreatic cancer Father Breast cancer Maternal Grandmother malignant fibroid tumor Mother Breast cancer Mother's Sister Breast cancer Other maternal aunt Pancreatic cancer Paternal Grandfather Throat cancer Sister Relation Name Status Comments Father Maternal Grandmother Mother Mother's Sister Other maternal aunt Alive Paternal Grandfather Sister Social History Tobacco Use Types Packs/Day Years Used Date Smoking Tobacco: Former Smokeless Tobacco: Never Alcohol Use Standard Drinks/Week Comments Yes 0 (1 standard drink = 0.6 oz pur e alcohol) Personal Safety Answer Date Recorded Getting School Help Needed Not on file 05/14 Comments No Sex and Gender Information Value Date Recorded Sex Assigned at Not on file Legal Sex Female 10:52 AM CDT Gender Identity Female 11/16/2019 4:25 PM CDT Sexual Orientation Straight 11/16/2019 4: 25 PM CDT Obstetrics History Last Filed Vital Signs Vital Sign Reading Time Taken Comments Blood Pressure - - Pulse - - Temperature - - Respiratory Rate - - Oxygen Saturation - - Inhaled Oxygen Concentration - - Weight 64.9 kg (143 lb 1.3 oz) 11/22/2019 2:20 P M CDT Height 154.9 cm (5' 0.98) 11/22/2019 2:20 PM CD T Body Mass Index 27.05 11/22/2019 2:20 PM CDT Plan of Treatment Health Maintenance Due Date Last Done Comments Colon Cancer Screening-Colonoscopy 1950 Depression Screening 1950 Fall Risk Assessment 1950 Hepatitis C Screening 1950 DTaP/Tdap/Td Vaccine (1 - Tdap) 1961 Hepatitis B Screening 1968 Pneumococcal vaccine 65+ (1 of 1 - PCV) 2000 Well Visit 65+ 10/03/2015 Osteoporosis Screening-Bone Density Scan 11/02/2022 11/02/2020, 11/02/2020, 12/28/2017 Breast Cancer Screening-Mammogram 01/17/2025 01/18/2024, 01/15/2023, 12/24/2021, Additional history exists Zoster Vaccine Completed 10/19/2018, 10/2017, 01/28/2018 Influenza Vaccine Completed 02/17/2024, , 02/03/2018 Procedures Procedure Name Priority Date/Time Associated Diagnosis Comments SCREENING MAMMOGRAM BILATERAL W JESSICA Schedule Routine, Read Routine (OP Routine) 01/18/2024 10:39 AM CDT Screening mammogram, encounter for from Last 3 Months or Most Recently Relevant to Health Maintenance Results * Screening Mammogram Bilateral W Jessica (01/18/2024 10:39 AM CDT) Anatomical Region Laterality Modality Breast Bilateral Mammography Narrative 01/19/2024 10:52 AM CDT Mammogram Technique: Bilateral Digital Breast Tomosynthesis, Bilateral C-view 2D Screening mammogram. Views obtained: bilateral craniocaudal and bilateral mediolateral oblique. Computer Aided Detection was performed. Mammogram Findings: The present examination has been compared to prior imaging studies performed at [facility] on 11/22/2020, 12/24/2021 and 01/15/2023. There are scattered areas of fibroglandular density. There is no suspicious abnormality in either breast. Impression: There is no mammographic evidence of malignancy. Annual screening mammography is recommended. OVERALL FINAL ASSESSMENT: BI-RADS CATEGORY 1: Negative. Procedure Note Annette Gregg MD - 01/19/2024 Mammogram Technique: Bilateral Digital Breast Tomosynthesis, Bilateral C-view 2D Screening mammogram. Views obtained: bilateral craniocaudal and bilateral mediolateral oblique. Computer Aided Detection was performed. Mammogram Findings: The present examination has been compared to prior imaging studies performed at [facility] on 11/22/2020, 12/24/2021 and 01/15/2023. There are scattered areas of fibroglandular density. There is no suspicious abnormality in either breast. Impression: There is no mammographic evidence of malignancy. Annual screening mammography is recommended. OVERALL FINAL ASSESSMENT: BI-RADS CATEGORY 1: Negative. us Self Screening Mammogram IMG MAMMO PROCEDURES Fi nal Result from Last 3 Months or Most Recently Relevant to Health Maintenance Insurance MEDICARE [facility] MEDICARE [facility] Care Teams Steel Rigger Relationship Specialty Start Date End Date Annette Herrera MD PCP - General Family Medicine 01/18/19
--- OUTSIDE RECORDS SUMMARY | 2024-11-10 11:51 | XMS_ITS | Referral Summary ---
Author Organization [facility] Address [address] [place] [address] Care Team Providers Care Certified Registered Nurse Practitioner Name Role Phone Annette Herrera MD Primary [...] 02/17/2024 ZOSTER LIVE 01/28/2018 ZOSTER Recombinant 10/19/2018,01/28/2018 Social History Tobacco Use Types Packs/Day Years [...] Orientation Straight 11/16/2019 4: 25 PM CDT Last Filed Vital Signs Vital Sign Reading [...] 11/22/2019 2:20 PM CDT Plan of Treatment Not on file Procedures Procedure Name Priority Date/Time Associated Diagnosis [...] compared to prior imaging studies performed at [facility] on 11/22/2020, 12/24/2021 and 01/15/2023. There are [...] compared to prior imaging studies performed at [facility] on 11/22/2020, 12/24/2021 and 01/15/2023. There are scattered areas of fibroglandular density. There is no suspicious abnormality in either breast. Impression: There is no mammographic evidence of malignancy. Annual screening mammography is recommended. OVERALL FINAL ASSESSMENT: BI-RADS CATEGORY 1: Negative. us Self Screening Mammogram IMG MAMMO PROCEDURES Fi nal Result from Last 3 Months or Most Recently Relevant to Health Maintenance Insurance MEDICARE [employer] Care Teams Certified Registered Nurse Practitioner Relationship Specialty Start Date End Date Annette Herrera MD PCP - General Family Medicine 01/18/19
--- OUTSIDE RECORDS SUMMARY | 2024-11-10 11:52 | XMS_ITS | Encounter Summary ---
Author Organization [facility] Address [address] [place] [address] Care Team Providers Care Psychologist Chief Name Role Phone Annette Herrera MD Primary Care Provider [phone] Encounter Details Date Type Department Care Team (Late st Contact Info) Description 11/08/2024 External Device Data [facility] ABSTRACTION Provider, Abstract NO ADDRESS ON FILE Social History Tobacco Use Types Packs/Day Years Used Date Smoking Tobacco: Never Smokeless Tobacco: Never Alcohol Use Standard Drinks/Week Comments Yes 0 (1 standard drink = 0.6 oz pur e alcohol) Comments No Sex and Gender Information Value Date Recorded Sex Assigned at Not on file Legal Sex Female 12:33 PM CDT Gender Identity Not on file Sexual Orientation Not on file documented as of this encounter Plan of Treatment Upcoming Encounters Date Type Department Care Team (Late st Contact Info) Description 11/14/2024 10:00 AM CDT Office Visit [facility] Oncology and Hematology - [place] [address] [place] [address] Adria Pastor MD [address] [facility] [address] [place] [address] documented as of this encounter Visit Diagnoses Not on filedocumented in this encounter Care Teams Psychologist Chief Relationship Specialty Start Date End Date Annette Herrera MD PCP - General Family Practice 03/24/16 documented as of this encounter
--- OUTSIDE RECORDS SUMMARY | 2024-11-10 11:52 | XMS_ITS | Data Portability ---
Author Organization [place] [facility], Main Office Address [address] [place] [address] Care Team Providers Care Painter Interior Finish Name Role Phone JAMEI RUSSO Primary Care Provider JAMIE RUSSO Referring Provider Assessment Encounter Date Assessment Date Assessment LastModified by Organization Details LastModified Time 01/21/2023 01/21/2023 72-year-old patient presents today for 2 year postop follow-up for right total shoulder arthroplasty on 01/17/[address] Mart. she states she is doing very well overall. No issues with range of motion or pain in the shoulder joint. He sometimes experiences pain at the elbow. She works on the computer for most of the day and feels like that contributes to the pain. Imaging: X-rays of the right shoulder show intact hardware without shifting. No acute abnormalities. Physical exam: no pain with palpitation the shoulder. Pain with palpitation epicondyle. Pain with resisted wrist revision. Shoulder range of motion intact. Good strength. Sensation intact throughout. He in regards to the shoulder she is doing well overall. We will see her back in 1 year for follow-up. She is likely experiencing some lateral epicondylitis. We talked about taking anti-inflammator ies and doing some exercises at home to help with this. We also recommend Voltaren gel and the use of an ergonomic mouse. She may come back to see us if this issue does not resolve. She is in agreement with this plan. [email or web address] Not available 01/21/2023 14:47:38 12/23/2023 12/23/2023 73-year-old female presents for follow-up of her right shoulder status post right total shoulder arthroplasty with Dr. Mart on 01/17/2022. She is about 2 years out from surgery. The shoulder was doing well up until the past couple weeks when she was doing more activities and lifting, and developed pain in the shoulder especially with lifting and movement. She currently rates pain as 7/10. She has been taking some meloxicam, has not had any other treatments. She has some soreness over the lateral shoulder. Range of motion 150/30/lower lumbar. She has 5/5 rotator cuff strength, although discomfort with resisted elevation, positive Anthony's. Positive Neer and Tsang. Neurovascular intact. X-rays of the shoulder were reviewed, demonstrating hardware intact and in place with no signs of loosening She developed some rotator cuff tendinitis from her activities. We will send her to physical therapy for her shoulder and she should also continue taking anti-inflammator ies. We will see her back after her course of PT as needed. We may consider getting MRI were doing cortisone injection if she does not have improvement after that. She is in agreement with the plan. Not available 12/23/2023 23:58:40 03/30/2024 03/30/2024 73-year-old female presents for follow-up of her right shoulder as well as a complaint for her right wrist. She has a history of a anatomic TSA with Dr. Mart in 2021. She was having some soreness consistent with rotator cuff tendinitis and we send her to physical therapy. She stopped going to PT because she injured her wrist, and cut has pain and swelling in the wrist. She has a area of swelling over the flexor tendons. Soreness with wrist flexion and extension. She also has some soreness with finger flexion extension. For the shoulder, she has range of motion 150/30/lower lumbar. 5- out of 5 elevation, otherwise 5/5 rotator cuff strength, discomfort with resisted elevation and positive Anthony. Negative Neer and Tsang. Negative speed and Sukumarrfelisa's. X-rays of the wrist were reviewed, demonstrate no acute bony abnormality. She has some CMC arthritis. For her persistent rotator cuff symptoms after a TSH, we discussed we can either obtaining MRI we will proceed with a cortisone injection. She elected to proceed with the injection and tolerated well. She is going to [place] for the next 5-6 months, and we can see her back after then if she has any issues. For her volar ganglion cyst, we will continue conservative management Not available 04/06/2024 15:59:36 10/05/2024 10/05/2024 74-year-old female presents for follow-up of her right shoulder and also a new complaint with her left shoulder. She has a history of a Arthrex eclipse anatomic TSA done by Dr. Mart. She developed some rotator cuff tendinitis, we sent her for MRI to evaluate for that. She says that physical therapy made it worse, she currently rates her pain as 8/10. She recently returned from [place] for the summer. She reports the left shoulder has also been bothering her, similar to what she was experiencing with her right shoulder arthritis prior to the surgery. Incision is well healed. She has good range of motion, pain with overhead lifting. 5- out of 5 strength with elevation, positive Anthony, positive Neer and Tsang. She has limited range of motion, pain, and crepitus on the left side X-rays of the left shoulder were reviewed, demonstrating glenohumeral arthritis with sijt-vz-lrbm joint space narrowing, inferior osteophyte MRI of the right shoulder was reviewed, demonstrating a tendinitis of the rotator cuff We discussed for the right shoulder, we will continue conservative management with anti-inflammator ies and physical therapy. We also discussed a repeat cortisone injection to try to, down. She wanted to proceed with this and tolerated well. With regards to her left shoulder, she has arthritis and we discussed treatments of anti-inflammator ies physical therapy, she can also get a cortisone injection down the road if she would like. She is in agreement with the plan. Follow-up as needed. She also mention that she wanted to get her knees checked out as well, she may make a separate appointment for that. Not available 10/05/2024 15:36:23 Plan of Treatment Reminders Order Date Submit Date Provider Last Modified By Organization Details Last Modified Time Details Appointments Any 5 2024 10:25A Jeffrey Peterson MD Not available Not available Not available Lab None recorded. Referral physical therapist referral 2024 025 [email or web address] Not available 11/04/2024 13:18:22 physical therapist referral - EVAL AND TREAT 2023 024 JONAH [facility], [address], [place], [address], 01/06/2024 15:19:12 Procedures injection /aspirati on joint/bur sa (PROC) 2024 025 [email or web address] 1 In-Office Order, Internal Use Only DO Not Attach Compendium DO Not Attach Compendium, Do Not Delete/merge, [id number] 10/05/2024 12:07:42 injection /aspirati on joint/bur sa (PROC) 2023 024 [email or web address] 1 In-Office Order, Internal Use Only DO Not Attach Compendium DO Not Attach Compendium, Do Not Delete/merge, 03/30/2024 11:23:29 Surgeries None recorded. Imaging XR, shoulder, 2 or more view 2024 025 [email or web address] [facility] [place], [address], [place], [address], 10/05/2024 16:42:49 XR, wrist, 3 or more view 2023 024 [email or web address] [facility] [place], [address], [place], [address], 03/31/2024 08:14:53 XR, shoulder 2023 024 JONAH [facility] [place], [address], [place], [address], 12/25/2023 11:35:09 XR, shoulder, 2 or more view 2022 023 [email or web address] [facility] [place], [address], [place], [address], 01/21/2023 14:40:38 Medication Orders bupivacai ne HCl 0.5 % (5 mg/mL) injection solution [address] [facility] [address] [id number], [address], [place], [place], [phone], 10/05/2024 15:41:33 Kenalog 10 mg/mL suspensio n for injection [address] [facility] [address] [id number], [address], [place], [place], [phone], 10/05/2024 15:41:33 bupivacai ne HCl 0.5 % (5 mg/mL) injection solution [address] [facility] [address] [id number], [address], [place], [place], [id number], 03/30/2024 15:24:53 Kenalog 10 mg/mL suspensio n for injection [address] [id number], [address], [place], [place], [phone], 03/30/2024 15:24:53 Patient TargetsNo targets recorded. Patient InstructionsNo instructions recorded. Reason for Referral Physical Therapist Referral for Pain of right shoulder joint EVAL AND TREAT Referring Physician: Blair Peterson, Orthopedic Surgery, Encounter Date: 12/23/2023 Physical Therapist Referral for Pain of right shoulder joint R shoulder Referring Physician: Blair Peterson, Orthopedic Surgery, Encounter Date: 10/05/2024 Results Created Date Observation Date Name Description Value Unit Range Abnormal Flag Note LastModifiedBy Organization Detail LastModifiedTime 01/22/20 22 XR, ana lilia dipika, 2 or more view No observ ation record ed. [id number] [facility] [place] [address], [place], [address], 07/23/2022 22:44:28 01/22/20 23 XR, shoul dipika, 2 or more view No observ ation record ed. [email or web address] [facility] [place] [address], [place], [address], 01/21/2023 14:40:37 12/23/19 24 XR, shoul dipika No observ ation record ed. [email or web address] [facility] [place] [address], [place], [address], 12/23/2023 14:30:16 03/30/20 24 XR, wrist , 3 or more view No observ ation record ed. [email or web address] [facility] [place] [address], [place], [address], 03/30/2024 10:57:19 05/23/20 24 05/20/2024 MRI, shoul dipika, w/o contr ast No observ ation record ed. [email or web address] [facility] [address] [facility] [address], [place], [address], 05/23/2024 16:40:19 10/06/19 25 XR, shoul dipika, 2 or more view No observ ation record ed. [email or web address] [facility] [place] [address], [place], [address], 10/05/2024 11:48:18 Result Notes None recorded. Problems Name Problem SNOMED Code Status Onset Date Resolution Date Notes Provider Name and Address Organization Details Recorded Time Osteoarthr itis 060968794 Active 2021 Not Available [employer] 3 22:43:30 Pain of right shoulder joint 0989195028035 9100 Active 2022 Vilma Amado, ATC L null, [place] [employer] 3 11:22:22 Tendinitis of right rotator cuff 8804129946734 9104 Active 2023 Blair Peterson MD [address] [facility], [place], [address] , [facility] [employer] [facility] 4 23:58:47 Pain of right wrist 6184874478609 00 Active 2023 Tsering LUZMARIA Ureña null, [place] [employer] [facility] [employer] [facility] 4 10:57:03 Pain of left shoulder joint 0868173475060 9109 Active 2024 Vilma Amado ATC L null, [facility] [employer] [facility] 5 11:48:14 Problem Notes None recorded. Procedures Surgical History Date Name Laterality Status Provider Name and Address Organization Details Recorded Time 5 Ortho - Cortisone Injection completed Blair Peterson MD [address] [employer] [employer], [employer], [place], [address], [facility] [employer] [facility] [employer] [facility] 10/05/2024 15:36:35 4 Ortho - Cortisone Injection completed Blair Peterson MD [address], [place], [address], [employer] [facility] [employer] [facility] 04/06/2024 15:57:51 Sinus Surgery completed Not Available [facility] 07/23/2022 22:42:51 Shoulder completed Vilma Amado ATC L [place] [employer] [facility] [employer] [facility] 01/21/2023 11:25:10 Imaging Results None recorded. Procedure Notes None recorded. Medical Equipment None Reported. Allergies Allergen ID Allergen Name Allergen Category Reaction Reaction Severity Criticality Documentation Date Start Date Code Code System Note Provider Name and Address Organization Details Recorded Time 23692 shellfish derived food,medi cation lighthead edness Not available Not available 07/23/2022 96102 UNK Not Available [facility] 22:44:15 26384 mold extract environme nt Not available Not available Not available 07/23/2022 11740 8 RxNorm Not Available [facility] 22:44:15 Medications Name Sig Start Date Stop Date Status Note LastModified by Organization Details LastModified Time amoxicillin 500 mg capsule TAKE 1 CAPSULE BY MOUTH EVERY 8 HOURS UNTIL ALL TAKEN 01/21 completed Not Available Not Available Not Available venlafaxine ER 37.5 mg capsule,ext ended release 24 hr active Not Available Not Available Not Available prednisone 10 mg tablet TAKE 2 TABLETS BY MOUTH EVERY DAY FOR 3 DAYS THEN 1 TABLET EVERY DAY FOR 3 DAYS 03/24 completed Not Available Not Available Not Available doxycycline hyclate 100 mg capsule TAKE 1 CAPSULE BY MOUTH TWICE DAILY. AVOID TAKING YOUR MINERAL / MULTIVITA MIN WHILE TAKING THIS MEDICATIO N 03/30 completed Not Available Not Available Not Available atorvastati n 10 mg tablet TAKE 1 TABLET BY MOUTH DAILY active Not Available Not Available No t Available hydrocodone 5 mg-acetamin ophen 325 mg tablet TAKE 1 OR 2 TABLETS BY MOUTH EVERY 6 HOURS NEEDED FOR PAIN 03/24 completed Not Available Not Available Not Available meloxicam 15 mg tablet TAKE 1 TABLET BY MOUTH DAILY active Not Available Not Available No t Available famotidine 40 mg tablet TAKE 1 TABLET BY MOUTH AT BEDTIME 01/21 completed Not Available Not Available Not Available bupivacaine HCl 0.5 % (5 mg/mL) injection solution Take 4 mL by injection route. 2024 active Not Available Not Available Not Avai lable acyclovir 400 mg tablet TAKE 1 TABLET BY MOUTH TWICE DAILY FOR 1 WEEK 03/30 completed Not Available Not Available Not Available triamcinolo ne acetonide 0.1 % topical cream APPLY TOPICALLY THREE TIMES DAILY 03/24 completed Not Available Not Available Not Available Vitamin C 1,000 mg tablet Take by oral route. 2020 active Not Available Not Available Not Avai lable Kenalog 10 mg/mL suspension for injection Take 1 mL by injection route. 2024 active [facility]: 0003- 0494- 20 Not Available Not Available Not Available meclizine 25 mg tablet TAKE 1 TABLET BY MOUTH THREE TIMES DAILY FOR DIZZINESS 03/30 completed Not Available Not Available Not Available hydrocodone 7.5 mg-acetamin ophen 325 mg tablet TAKE 1 TABLET BY MOUTH EVERY 6-8 HOURS NEEDED FOR PAIN 01/21 completed Not Available Not Available Not Available cephalexin 500 mg capsule TAKE 1 CAPSULE BY MOUTH EVERY 8 HOURS 01/21 completed Not Available Not Available Not Available neomycin-po lymyxin-dex ameth 3.5 mg/mL-10,00 0 unit/mL-0.1 % eye drops INSTILL 1 DROP INTO EACH EYE FOUR TIMES DAILY FOR 7 DAYS 03/24 completed Not Available Not Available Not Available prednisone 50 mg tablet TAKE 1 TABLET BY MOUTH DAILY 03/24 completed Not Available Not Available Not Available omeprazole 20 mg capsule,del ayed release TAKE 1 CAPSULE BY MOUTH DAILY active Not Available Not Available No t Available methylpredn isolone 4 mg tablets in a dose pack FOLLOW PACKAGE DIRECTION S 03/24 completed Not Available Not Available Not Available fluticasone propionate 50 mcg/actuati on nasal spray,suspe nsion SHAKE LIQUID AND USE 2 SPRAYS IN EACH NOSTRIL DAILY active Not Available Not Available No t Available amoxicillin 875 mg-potassiu m clavulanate 125 mg tablet TAKE 1 TABLET BY MOUTH TWICE DAILY 03/24 completed Not Available Not Available Not Available chlorhexidi ne gluconate 0.12 % mouthwash SWISH AND SPIT OUT 15 ML BY MOUTH TWICE DAILY FOR 10 DAYS 01/21 completed Not Available Not Available Not Available Vitamin D3 1000 2020 active Not Available Not Available Not Avai lable Tylenol Arthritis Pain 2020 active Not Available Not Available Not Avai lable Prolia every 6 months 03/30 completed Not Available Not Available Not Available Caltrate 800 mg 2020 active Not Available Not Available Not Avai lable BinaxNOW COVID-19 Ag Self Test kit TEST DIRECTED TODAY 03/24 completed Not Available Not Available Not Available Vitals Date Recorded Body height Body mass index (BMI) Body weight Provider Name and Address Organization Details Last Updated DateTime 10/05/2024 154.94 cm 27 kg/m2 30271.71 g Hina Donald CNA [employer] 10/05/2024 11:19:52 Date Recorded Body height Body mass index (BMI) Body weight Provider Name and Address Organization Details Last Updated DateTime 12/23/2023 154.94 cm 27 kg/m2 20971.71 g Hina Donald CNA [employer] [facility] 12/23/2023 14:22:40 Date Recorded Body mass index (BMI) Body height Body weight Provider Name and Address Organization Details Last Updated DateTime 01/21/2022 29.3 kg/m2 149.86 cm 47718.89 g Not Available [employer] 07/23/2022 22:42:57 Date Recorded Body height Body mass index (BMI) Body weight Provider Name and Address Organization Details Last Updated DateTime 01/21/2023 149.86 cm 29.3 kg/m2 86501.89 g Vilma Amado, ATC L [employer] [facility] 01/21/2023 11:22:05 Date Recorded Body height Body mass index (BMI) Body weight Provider Name and Address Organization Details Last Updated DateTime 03/30/2024 154.94 cm 27 kg/m2 39441.71 g Tsering Ureña, A [employer] [facility] 03/30/2024 10:51:10 Social History Question Answer Notes LastModified by [employer] Details LastModified Time Tobacco Smoking Status Unknown If Ever Smoked Not Available [facility] 07/23/2022 22:42:26 What Was The Date Of Your Most Recent Tobacco Screening? 03/30/2024 [email or web address] Information not available 03/30/2024 Sex: Unknown Functional Status Question Answer Note LastModified by [employer] Details LastModified Time What is your level of alcohol consumption? Occasional [id number] Information not available 07/23/2022 Mental Status None recorded. Family History Relationship Description Onset Age of this Age Resolved Age Notes LastModified by Organization Details LastModified Time Unspecified Relation Complication of anesthesia aunt [id number] Not available 07/23/2022 22:42:51 Mother Family history of malignant neoplasm [id number] [id number] Not available 07/23/2022 22:42:51 Father Family history of malignant neoplasm [id number].020 [id number] Not available 07/23/2022 22:42:51 Sister Family history of malignant neoplasm [id number].277 [id number] Not available 07/23/2022 22:42:51 Maternal Grandmother Heart disease [id number].489 [id number] Not available 07/23/2022 22:42:51 Maternal Grandfather Diabetes mellitus MIGRATION.348 [id number] Not available 07/23/2022 22:42:51 Medical History Condition Response ARTHRITIS Y OSTEOPOROSIS Y ANEMIA/BLOOD DISORDER Y Gynecological HistoryNo gynecological history recorded. Obstetrics History GPAL:G 0 P 0 0 0 0 Past Encounters Encounter ID Performer Location Encounter Start Date Encounter Closed Date Diagnosis/Indication Diagnosis SNOMED-CT Code Diagnosis ICD10 Code Diagnosis Note [id number] Mark Osorio MD [facility] [place] [address] [place] [address] 11/02/2020 00:00:00 11/02/2020 12:05:28 [id number] Jake Mart MD [facility] [place] [address] [place] [address] 11/20/2020 00:00:00 11/20/2020 10:34:26 [id number] Jake Mart MD [facility] [place] [address] [place] [address] 11/27/2020 00:00:00 11/27/2020 16:38:09 [id number] Jake Mart MD [facility] [place] [address] [place] [address] 01/11/2021 00:00:00 01/11/2021 10:23:20 [id number] Jake Mart MD [facility] [place] [address] [place] [address] 01/23/2021 00:00:00 01/23/2021 15:41:13 [id number] Jake Mart MD [facility] [place] [address] [place] [address] 02/01/2021 00:00:00 02/01/2021 11:03:04 [id number] Jake Mart MD [facility] [place] [address] [place] [address] 02/13/2021 00:00:00 02/13/2021 16:54:31 [id number] Jake Mart MD [facility] [place] [address] [place] [address] 03/06/2021 00:00:00 04/09/2021 13:47:28 [id number] Jake Mart MD [facility] [place] [address] [place] [address] 05/07/2021 00:00:00 05/07/2021 12:15:45 [id number] Jake Mart MD [facility] [place] [address] [place] [address] 09/10/2021 00:00:00 09/10/2021 11:46:39 [id number] Jake Mart MD [facility] [place] [address] [place] [address] 01/21/2022 00:00:00 01/21/2022 12:51:41 [id number] Blair Peterson MD [facility] [place] [address] [place] [address] 01/21/2023 11:00:37 01/21/2023 11:48:25 Pain of right shoulder joint 2414288186 7949226 M25.283 [id number] Blair Peterson MD [facility] [place] [address] [place] [address] 12/23/2023 14:19:05 12/23/2023 14:51:17 Pain of right shoulder joint 9379870283 1423919 M25.511 Tendinitis of right rotator cuff 0338490391 6712113 M67.571 [id number] Blair Peterson MD [facility] [place] [address] [place] [address] 03/30/2024 10:30:40 03/30/2024 11:32:42 Pain of right shoulder joint 7510940577 5116577 M25.511 Pain of right wrist 3169 452302 90798 M25.661 [id number] Blair Peterson MD [facility] [place] [address] [place] [address] 10/05/2024 11:17:34 10/05/2024 12:11:32 Pain of right shoulder joint 3901867300 8043499 M25.511 Tendinitis of right rotator cuff 5039931204 3929645 M67.813 Pain of le ft shoulder joint 3805884660 6305106 M25.512 Health Concerns Section Related Observation LastModified by Organization Detai ls LastModified Time None Recorded Concern Status LastModified by Organization Details LastModified Time None Recorded Advance Directives Directive None Recorded Payers Insurance Date Sequence Insurance Name Policy Number Policy Chavez Covered Member ID Chavez Member ID Guarantor Name 09/30/2024 1 [place] Ngozi Gomez [id number] Ngozi Gomez 09/30/2024 2 [employer] (MEDICARE SUPPLEMENT) Ngozi Gomez [id number] Ngozi Gomez OBGyn Episode No OBEpisode recorded.
[2024-11-10 12:43] LABS: Iron 77 ug/dL (37-170)
[2024-11-10 12:44] LABS: Alanine Aminotransferase 32 U/L (6-35); Albumin Level 4.5 g/dL (3.5-5.1); Alkaline Phosphatase 87 U/L (38-126); Anion Gap 8 mmol/L (4-12); Aspartate Amino Transferase 49 U/L (14-36); Bilirubin,Total 0.3 mg/dL (0.2-1.3); Blood Urea Nitrogen 16 mg/dL (7-17); Calcium 9.6 mg/dL (8.4-10.2); Carbon Dioxide 28 mmol/L (22-30); Chloride 101 mmol/L (98-107); Cholesterol 246 mg/dL (0-200); Estimated Glomerular Filt Rate > 60; Glucose 96 mg/dL (65-110); HDL Direct 76 mg/dL; Potassium 4.4 mmol/L (3.4-5.0); Sodium 137 mmol/L (137-145); Total Protein 7.6 g/dL (6.3-8.2); Triglycerides 147 mg/dL (<150)
[2024-11-10 12:56] LABS: LDL Cholesterol Direct 99 mg/dL; Percent Iron Saturation 27 % (20-50)
== END 2024-11-10 11:01 | disposition home or self-care (01) ==
LOC: ANHLAB 11:01
PROVIDERS: PCP Family Medicine; Visit Provider Internal Medicine Hematology & Oncology
DX: D64.9 Anemia, unspecified (principal); E78.2 Mixed hyperlipidemia
CPT/HCPCS: 36415; 80053; 80061; 82607; 82728; 83540; 83550; 85025